=== PATIENT | female | born 1960 | race Caucasian/White ===

== ENCOUNTER 2020-05-22 11:35 | Outpatient (REF) | payer OTHER, SELFPAY ==
[2020-05-22 13:09] LABS: SARS COV2 PCR INHOUSE NEGATIVE (Negative)
== END 2020-05-22 11:36 | disposition home or self-care (01) ==
LOC: HO.EMPCOV 11:35
PROVIDERS: Visit Provider Internal Medicine
DX: Z20.828 Contact with and (suspected) exposure to other viral communicable diseases (principal)
CPT/HCPCS: U0003

== ENCOUNTER 2020-05-27 06:55 | Outpatient (REF) | payer OTHER, SELFPAY ==
[2020-05-27 07:23] LABS: COVID-19 Test Negative (Negative)
== END 2020-05-27 06:56 | disposition home or self-care (01) ==
LOC: HO.LAB 06:55
PROVIDERS: Visit Provider Internal Medicine
DX: Z20.828 Contact with and (suspected) exposure to other viral communicable diseases (principal)
CPT/HCPCS: 87635; C9803

== ENCOUNTER → 2021-02-19 10:29 | Outpatient (BNVA) | payer OTHER, SELFPAY | PROVIDERS: PCP Internal Medicine; Visit Provider Internal Medicine ==

== ENCOUNTER 2021-04-07 15:58 | Outpatient (REF) | payer BC, SELFPAY ==
--- NOTE | ~2021-04-07 | US_ITS ---
EXAMINATION: US THYROID CLINICAL INFORMATION: Nontoxic multinodular goiter. COMPARISON: Ultrasound soft tissue head/neck thyroid dated 01/07/2020 and 10/05/2018. TECHNIQUE: Linear transducer grayscale and color Doppler examination with attention to the region of the thyroid. FINDINGS: SIZE: Measurements of the solitary left thyroid lobe and nodules are given in sagittal, anteroposterior and transverse dimensions respectively. Right Thyroid Lobe: Surgically absent. Left Thyroid Lobe: 5.6 x 2.5 x 2.7 cm, volume 20.2 mL. Previously 5.0 x 2.5 x 2.6 cm, volume 17.3 mL. Parenchyma: The gland echotexture is heterogeneous. Thyroid vascularity is increased. Isthmus: 0.3 cm in maximum AP dimension. Previously 0.5 cm. Estimated total number of nodules greater than or equal to 1 cm: 1. 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 Location: Left mid. Size: 3.3 x 1.8 x 2.4 cm, volume 7.1 mL. Previously: 4.2 x 2.1 x 2.4 cm, volume 11.1 mL. Nodule characteristics: Composition: Solid/almost completely solid (2). Echogenicity: Isoechoic (1). Shape: Not taller than wide (0). Margins: Smooth (0). Echogenic Foci: None (0). ACR TI-RADS total points: 3 ACR TI-RADS category: 3 Significant change in size (>/= 20% in 2 dimensions and minimal increase of 2 mm or 50% or greater increase in volume): None Change in features: None Change in ACR TI-RADS risk category: Not applicable NODES: Benign left mid neck lymph node measuring 0.7 x 0.8 x 0.4 cm. US/US thyroid IMPRESSION: Right thyroid gland removed. Enlarged, slightly heterogeneous and hypervascular left thyroid lobe with a solitary nodule, improved in size since the last exam. ACR TI-RADS RECOMMENDATION REFERENCE: Ultrasound-guided fine-needle aspiration, followup ultrasound, no further follow up. * TR1 (0 point) and TR 2 (2 points): No FNA or follow up * TR3 (3 points): FNA if more than or equal to 2.5 cm in maximum dimension, followup ultrasound in 1, 3 and 5 years if 1.5 to 2.4 cm in maximum dimension. * TR4 (4-6 points): FNA if more than or equal to 1.5 cm in maximum dimension, followup ultrasound in 1, 2, 3 and 5 years if 1 to 1.4 cm in maximum dimension. * TR5 (more than or equal to 7 points): FNA if more than or equal to 1 cm in maximum dimension, followup ultrasound every year for 5 years if 0.5 to 0.9 cm in maximum dimension. * TR3, TR4 or TR5 nodules that are below the size threshold for follow up receive no follow up.
[2021-04-07 17:59] LABS: Free T4 (Free Thyroxine) 1.04 ng/dL (0.71-1.85); Thyroid Stimulating Hormone 1.11 uIU/mL (0.32-4.0)
== END 2021-04-07 15:59 | disposition home or self-care (01) ==
LOC: HO.US 15:58
PROVIDERS: Visit Provider Internal Medicine
DX: E04.2 Nontoxic multinodular goiter (principal)
CPT/HCPCS: 36415; 76536; 84439; 84443

== ENCOUNTER 2022-04-23 15:00 | Outpatient (REF) | payer BC, SELFPAY ==
--- NOTE | ~2022-04-23 | US_ITS ---
EXAMINATION: US THYROID CLINICAL INFORMATION: Nontoxic multinodular goiter. COMPARISON: Ultrasound thyroid 04/07/2021 and 01/07/2020. US-guided thyroid biopsy 01/25/2019. TECHNIQUE: Linear transducer grayscale and color Doppler examination with attention to the region of the thyroid. FINDINGS: SIZE: Measurements of the solitary left thyroid lobe and nodules are given in sagittal, anteroposterior and transverse dimensions respectively. Right Thyroid Lobe: Surgically absent. Left Thyroid Lobe: 7.1 x 2.9 x 3.0 cm, volume 32 mL. Previously 5.6 x 2.5 x 2.7 cm, volume 20.2 mL. Parenchyma: The gland echotexture is heterogeneous. Thyroid vascularity is increased. Isthmus: 0.4 cm in maximum AP dimension. Previously 0.3 cm. Estimated total number of nodules greater than or equal to 1 cm: 1. Aquatic Performer nodules are described as follows: 1. Location: Left mid. Size: 4.3 x 2.8 x 2.2 cm, volume 13.4 mL. Previously: 3.3 x 1.8 x 2.4 cm, volume 7.1 mL. Nodule characteristics: Composition: Solid/almost completely solid (2). Echogenicity: Isoechoic (1). Shape: Not taller than wide (0). Margins: Smooth (0). Echogenic Foci: None (0). ACR TI-RADS total points: 3 Previous: 3 ACR TI-RADS category: 3 Previous: 3 This nodule has enlarged compared with the prior ultrasound. NODES: Included in the images normal-sized lymph nodes.. US/US thyroid IMPRESSION: 1. Status post right thyroidectomy. 2. Enlarged dominant nodule in the left lobe, given its size 4.3 cm ACR T-RADS 3, FNA of which is warranted. ACR TI-RADS RECOMMENDATION REFERENCE: Ultrasound-guided fine-needle aspiration, followup ultrasound, no further follow up. * TR1 (0 point) and TR 2 (2 points): No FNA or follow up. * TR3 (3 points): FNA if more than or equal to 2.5 cm in maximum dimension, followup ultrasound in 1, 3 and 5 years if 1.5 to 2.4 cm in maximum dimension. * TR4 (4-6 points): FNA if more than or equal to 1.5 cm in maximum dimension, followup ultrasound in 1, 2, 3 and 5 years if 1 to 1.4 cm in maximum dimension. * TR5 (more than or equal to 7 points): FNA if more than or equal to 1 cm in maximum dimension, followup ultrasound every year for 5 years if 0.5 to 0.9 cm in maximum dimension. * TR3, TR4 or TR5 nodules that are below the size threshold for followup receive no follow up.
[2022-04-23 16:02] LABS: Free T4 (Free Thyroxine) 1.06 ng/dL (0.71-1.85); Thyroid Stimulating Hormone 0.79 uIU/mL (0.32-4.0)
== END 2022-04-23 15:01 | disposition home or self-care (01) ==
LOC: HO.US 15:00
PROVIDERS: PCP Family Medicine; Visit Provider Internal Medicine
DX: E04.2 Nontoxic multinodular goiter (principal)
CPT/HCPCS: 36415; 76536; 84439; 84443

== ENCOUNTER 2022-06-09 07:51 | Outpatient (REF) | payer BC, SELFPAY ==
--- NOTE | 2022-06-09 08:28 | PM.OP ---
Brief Operative Note Date of Service: 06/09/22 Pre-op diagnosis: Multinodular Thyroid Procedure: EXAMINATION: US THYROID CLINICAL INFORMATION: Multinodular Thyroid COMPARISON: Prior TECHNIQUE: Linear transducer neal-scale and color Doppler examination with attention to the region of the thyroid. FINDINGS: SIZE: Measurements of the thyroid lobes and nodules are given in sagittal, anteroposterior and transverse dimensions respectively. Right Thyroid Lobe: Surgically removed. Left Thyroid Lobe: 5.5 x 2.4 x 3.7 cm, volume 48.84 mL. Parenchyma: The gland echotexture is heterogenous. Thyroid vascularity is normal. Isthmus: 0.4 cm in maximum AP dimension. RIGHT THYROID LOBE: No tissue found within the thyroid bed. LEFT THYROID LOBE: There is 1 nodule. There is a 4.4 x 2.0 x 2.6 cm (Volume 22.88 ml) predominantly solid nodule. This has a mixed cystic pattern, normal vascularity, smooth margins and no microcalcifications. NODES: There is a 0.7 cm spherical appearing lymph node in the L level II cervical region. No discrete fatty hilum is visualized. IMPRESSION: I discussed with the Patient that her nodule has grown slightly, but not what is considered significant growth to warrant repeat FNA biopsy as this was L lobe nodule was previously biopsied in 2019 when measuring 3.8 x 1.8 x 2.4 cm. Cytology at that time was AUS with benign affirma. We discussed repeating biopsy today, or continuing to monitor with yearly US surveillance. She has opted for continued surveillance with repeat US in 1 years time. Surgeon: Meagan Street, DO Was an Wood Patternmaker Apprentice used for this Procedure?: No Estimated blood loss (mL): 0
== END 2022-06-09 07:52 | disposition home or self-care (01) ==
LOC: HO.US 07:51
PROVIDERS: Visit Provider Internal Medicine
DX: E04.2 Nontoxic multinodular goiter (principal)
CPT/HCPCS: 76536

== ENCOUNTER 2023-06-09 14:44 | Outpatient (AMB) | payer BC, SELFPAY ==
[2023-06-09 14:51] VITALS: BP 140/78; PULSE 98; BMI 32.6
--- NOTE | 2023-06-09 14:51 | MHC.OFFVIS ---
Intake Vital Signs 06/09/23 14:51 Height 5 ft 3 in Weight 184 lb 4.903 oz BMI 32.6 BP 140/78 H Blood Pressure Location Lt brachial Position Sitting Pulse 98 Pulse Source Pulse Oximeter Intake Visit Reasons: F/up NTMNG/CONFIRMED Intake Note: Patient present today for NTMNG follow up visit. Meatman Required: No Accompanied by: Self / Same As Patient Allergies amoxicillin Allergy (Unknown, Uncoded 07/13/22 14:26) hives Arithromicyn Allergy (Unknown, Uncoded 07/13/22 14:26) hives HPI HPI Comments History of Present Illness Details 63 YO F with PMHx multinodular thyroid s/p R hemithyroidectomy in 1993 who is seen in F/U for NTMG. Patient last saw Dr. Rodriguez on 06/09/2022 ?She reports that she was found to have a large goiter in the 's with compressive symptoms. She subsequently had a R sided hemithyroidectomy. She reports no cancer was contained within. She remained euthyroid and off all thyroid hormone. No F/U ultrasound was completed. ?She was diagnosed with pneumonia earlier this year (2018). She had a CT scan that revealed a nodule within the L lobe of the thyroid. She subsequently had thyroid US completed 10/05/18. This revealed a 3.8 cm nodule within the L lobe of the thyroid. There were some prominent cervical lymph nodes, but these were of normal morphology. She was subsequently referred to Endocrinology. ?She underwent FNA biopsy of the 3.8 cm L sided thyroid nodule 01/25/19 by me. Cytology was Atypia of Undetermined Significance ([place] Category III). Affirma was benign. After discussion regarding the risks of malignancy (<4%) with benign affirma results she opted for surveillance of the nodule with yearly US. ?She had a repeat thyroid US 01/07/2020 which revealed no significant growth of the nodule. US again repeated 04/23/2022 now with significant growth of the nodule to 4.3 cm. ?Currently denies any symptoms of hyper or hypothyroidism. ?Denies any history of head or neck irradiation. Denies any family history of thyroid cancer. Does have a significant family history of hypothyroidism in her Father and Brother. ?Thyroid US 01/07/2020: ?Right Thyroid Lobe: Removed. ? Left Thyroid Lobe: 5.0 x 2.5 x 2.6 cm, volume 17.3 mL. Previously 5.2 x ? 2.4 x 2.3 cm, volume 15.0 mL. ? Parenchyma: The gland echotexture is heterogeneous. Thyroid vascularity ? is increased. ? Isthmus: 0.5 cm in maximum AP dimension. Previously 0.4 cm. ? RIGHT THYROID LOBE: No nodules. ? ISTHMUS: No nodules. ? LEFT THYROID LOBE: There is 1 nodule seen. ? 1. Location: Mid pole. ? Size: 4.2 x 2.1 x 2.4 cm. Previous: 3.8 x 1.8 x 2.4 cm. ? Nodule characteristics: Hypoechoic, smoothly marginated with ? intranodular flow. ? NODES: No lymphadenopathy is seen in the tissue surrounding the thyroid ? gland. Labs: Laboratory Tests 04/23/22 15:10 TSH 0.79 Free T4 1.06 PFSH Medical History Multinodular thyroid Surgical History History of surgery History of total hysterectomy with bilateral salpingo-oophorectomy (BSO) Family History Father No problems noted. Mother No problems noted. Social History (System 07/13/22 @ 14:26 by Mellissa Schumacher) Patient Tobacco Use Status: Former Tobacco user Quit Date: 17 years ago Physical Exam Vital Signs: Last Vital Signs Pulse 98 06/09/23 14:51 BP 140/78 H 12/21/23 14:51 BMI result Body Mass Index 32.6 Const Other: Healed scar status post right hemithyroidectomy. Left lobe does not contain the presence of palpable Assessment & Plan Assessment & Plan (1) Multinodular thyroid: Code(s): E04.2 - Nontoxic multinodular goiter Plan 63-year-old white female with history of right hemithyroidectomy and left nodule status post FNA in 2019 with AUS but. negative Afirma. Repeat ultrasounds do not show significant change in the size or characteristics nodule. Appears clinically euthyroid. Plan is to recheck TSH and free T4 and repeat thyroid ultrasound Orders: Orders US thyroid Today E04.2 - Nontoxic multinodular goiter Coding Level of Care Code Est Pt Level 3 (03476) Diagnoses Multinodular thyroid E04.2
== END 2023-06-09 15:05 | disposition home or self-care (01) ==
PROVIDERS: PCP Family Medicine; Visit Provider Internal Medicine Endocrinology, Diabetes & Metabolism
DX: E04.2 Nontoxic multinodular goiter (principal)
CPT/HCPCS: 99213

== ENCOUNTER → 2023-06-09 14:44 | Outpatient (BNVA) | payer BC, SELFPAY | PROVIDERS: Visit Provider Internal Medicine Endocrinology, Diabetes & Metabolism ==

== ENCOUNTER 2023-07-18 15:05 | Outpatient (REF) | payer BC, SELFPAY ==
--- NOTE | ~2023-07-18 | US_ITS ---
EXAMINATION: US THYROID CLINICAL INFORMATION: Nontoxic multinodular goiter. Right thyroidectomy. COMPARISON: Thyroid ultrasound 06/09/2022 and 04/23/2022. TECHNIQUE: Linear transducer grayscale and color Doppler examination with attention to the region of the thyroid. FINDINGS: SIZE: Measurements of the solitary left thyroid lobe and nodules are given in sagittal, anteroposterior and transverse dimensions respectively. Right Thyroid Lobe: Surgically absent. Left Thyroid Lobe: 6.3 x 2.6 x 3.1 cm, volume 26.6 mL. Previously 7.1 x 2.9 x 3.0 cm, volume 32 mL. Parenchyma: The gland echotexture is heterogeneous. Thyroid vascularity is increased. Isthmus: 0.5 cm in maximum AP dimension. Previously 0.4 cm. Estimated total number of nodules greater than or equal to 1 cm: 1. Tape Weaver nodules are described as follows: 1. Location: Left mid pole. Size: 4.7 x 1.9 x 3.3 cm, volume 16.0 mL. Previously: 4.3 x 2.8 x 2.2 cm, volume 13.4 mL. Nodule characteristics: Composition: Solid/almost completely solid (2). Echogenicity: Isoechoic (1). Shape: Not taller than wide (0). Margins: Smooth (0). Echogenic Foci: None (0). ACR TI-RADS total points: 3 Previous: 3 ACR TI-RADS category: 3 Previous: 3 Significant change in size (>/= 20% in 2 dimensions and minimal increase of 2 mm or 50% or greater increase in volume): Yes Change in features: No Change in ACR TI-RADS risk category: No RIGHT THYROIDECTOMY BED: No significant abnormality. NODES: Again noted 0.8 x 0.5 x 0.7 cm left cervical level 3 lymph node previously measuring 0.7 x 0.4 x 0.6 cm with a somewhat heterogeneous echogenicity and loss of a distinct fatty salvador, not significantly changed. Additional new 1.7 x 0.5 x 0.6 cm left cervical level 3 lymph node with a more elongated/elliptical morphology but also loss of a distinct fatty salvador. There is a new 1.9 x 0.7 x 1.3 cm left-sided level 2 cervical lymph node with a preserved fatty salvador but a thickened cortex. US/US thyroid IMPRESSION: 1. Status post right thyroidectomy with a normal appearance of the posterior nephrectomy bed. 2. Enlarged now 4.7 cm left midpole TR 3 nodule for which FNA is recommended. 3. A few new left-sided cervical level 2 and 3 lymph nodes demonstrating lack of a distinct fatty hilum and thickened cortex. If sampling of these nodules is not obtained, then close attention on follow-up is advised. ACR TI-RADS RECOMMENDATION REFERENCE: Ultrasound-guided fine-needle aspiration, follow up ultrasound, no further followup. * TR1 (0 point) and TR2 (2 points): No FNA or followup * TR3 (3 points): FNA if more than or equal to 2.5 cm in maximum dimension, follow up ultrasound in 1, 3 and 5 years if 1.5 to 2.4 cm in maximum dimension. * TR4 (4-6 points): FNA if more than or equal to 1.5 cm in maximum dimension, follow up ultrasound in 1, 2, 3 and 5 years if 1 to 1.4 cm in maximum dimension. * TR5 (more than or equal to 7 points): FNA if more than or equal to 1 cm in maximum dimension, follow up ultrasound every year for 5 years if 0.5 to 0.9 cm in maximum dimension. * TR3, TR4 or TR5 nodules that are below the size threshold for follow up receive no followup.
== END 2023-07-18 15:06 | disposition home or self-care (01) ==
LOC: HO.HMGCX 15:05
PROVIDERS: PCP Internal Medicine; Visit Provider Internal Medicine Endocrinology, Diabetes & Metabolism
DX: E04.2 Nontoxic multinodular goiter (principal)
CPT/HCPCS: 76536